=== PATIENT | female | born 1980 | race Caucasian/White ===

== ENCOUNTER 2022-03-15 04:18 | Day surgery (SDC) | payer OTHER ==
[2022-03-15] MEDS ORDERED: LIDOCAINE HCL 1%, 10 MG/ML (20ML VIAL) ONE (10:52)
[2022-03-15] MEDS ORDERED: LIDOCAINE HCL/PF 2% SDV 5ML VIAL ONE (11:08)
[2022-03-15] MEDS ORDERED: DEXAMETHASONE SOD PHOSPHATE 4 MG/1 ML VIAL ONE (11:08)
[2022-03-15] MEDS ORDERED: PROPOFOL 20 ML ONE (11:09)
[2022-03-15] MEDS ORDERED: MIDAZOLAM HCL 2 MG/2 ML SINGLE DOSE VIAL ONE (11:09)
[2022-03-15] MEDS ORDERED: ONDANSETRON 4 MG/2 ML VIAL IVPUSH PRN (11:30)
[2022-03-15] MEDS ORDERED: oxyCODONE HCL 5 MG TABLET PO PRN (11:30)
[2022-03-15] MEDS ORDERED: LACTATED RINGERS SOLUTION 1,000 ML IV SCH (11:30)
[2022-03-15] MEDS ORDERED: ceFAZolin SODIUM 1 GM VIAL ONE (11:55)
[2022-03-15] MEDS ORDERED: ceFAZolin SODIUM 1 GM VIAL IVPB ONE (11:57)
[2022-03-15] MEDS ORDERED: LIDOCAINE HCL 1%, 10 MG/ML (20ML VIAL) NR ONE ×2 (12:05)
[2022-03-15 16:32] VITALS: TEMP 97.6
[2022-03-15 17:51] VITALS: BP 113/62; PULSE 78
== END 2022-03-15 14:45 | disposition home or self-care (01) ==
LOC: JASU-SURG 04:18
PROVIDERS: ATTEND Surgery
PROC: 0HBU0ZX Excision of Left Breast, Open Approach, Diagnostic (ICD-10-PCS; principal; 2022-03-15 10:00)
DX: N60.32 Fibrosclerosis of left breast (principal)
CPT/HCPCS: 19281; 76098-TC-FY; 81025; 88307-TC; 88341-TC; 88342-TC; 94760